=== PATIENT | female | born 1970 | race Caucasian/White ===

== ENCOUNTER 2021-04-20 16:53 | Emergency (ER) | payer OTHER, MEDICAID ==
[~2021-04-20] VITALS: Ht 154.9 cm; Wt 111.1 kg
== END 2021-04-20 18:38 | disposition left against medical advice (07) ==
LOC: ED 16:53
DX: L08.9 Local infection of the skin and subcutaneous tissue, unspecified (principal); Z53.21 Procedure and treatment not carried out due to patient leaving prior to being seen by health care provider; Z88.8 Allergy status to other drugs, medicaments and biological substances

== ENCOUNTER → 2021-06-29 | Outpatient (CLI) | payer OTHER, MEDICAID ==
[2021-06-30 18:06] LABS: AMPHETAMINE, URINE Negative ng/mL (Cutoff=1000); BARBITURATE Negative ng/mL (Cutoff=200); CANNABINOIDS Negative ng/mL (Cutoff=20); COCAINE (METABOLITE) Negative ng/mL (Cutoff=300); FENTANYL, URINE Negative pg/mL (Cutoff=2000); MEPERIDINE Negative ng/mL (Cutoff=200); METHADONE Negative ng/mL (Cutoff=300); PHENCYCLIDINE Negative ng/mL (Cutoff=25); PROPOXYPHENE Negative ng/mL (Cutoff=300); TRAMADOL Negative ng/mL (Cutoff=200)
== END | disposition home or self-care (01) ==
LOC: LAB 09:45
PROVIDERS: ATTEND Nurse Practitioner Family
DX: Z51.81 Encounter for therapeutic drug level monitoring (principal); Z79.899 Other long term (current) drug therapy

== ENCOUNTER 2023-03-08 09:54 | Emergency (ER) | payer OTHER, MEDICAID ==
[~2023-03-08] VITALS: Ht 154.9 cm; Wt 99.8 kg
[2023-03-08] MEDS ORDERED: CYCLOBENZAPRINE10 MG PO (10:10)
[2023-03-08] MEDS ORDERED: GABAPENTIN600 MG PO (10:10)
[2023-03-08] MEDS ORDERED: HYDROCODONE-AC1 EACH PO (10:11)
[2023-03-08] MEDS ORDERED: ARIPIPRAZOLE2 MG PO (10:11)
[2023-03-08] MEDS ORDERED: BUSPAR15 MG PO (10:12)
[2023-03-08] MEDS ORDERED: CARVEDILOL12.5 MG PO (10:12)
[2023-03-08] MEDS ORDERED: HYDROXYZINE PAM25 M1 PO (10:13)
[2023-03-08] MEDS ORDERED: FAMOTIDINE40 MG PO (10:13)
[2023-03-08] MEDS ORDERED: HYDROCHLOROTHIA25 M1 PO (10:13)
[2023-03-08] MEDS ORDERED: VENT7GM INH (10:14)
[2023-03-08] MEDS ORDERED: ESCITALOPRAM OX20 MG PO (10:15)
== END 2023-03-08 12:27 | disposition home or self-care (01) ==
LOC: ED 09:54
DX: M54.2 Cervicalgia (principal); M54.6 Pain in thoracic spine; Z88.8 Allergy status to other drugs, medicaments and biological substances; Z79.899 Other long term (current) drug therapy; V43.63XA Car passenger injured in collision with pick-up truck in traffic accident, initial encounter; Y93.89 Activity, other specified; Y92.89 Other specified places as the place of occurrence of the external cause; Y99.8 Other external cause status

== ENCOUNTER 2024-03-09 16:09 | Inpatient (IN) | payer MEDICARE, MEDICAID ==
[~2024-03-09] VITALS: Ht 154.9 cm; Wt 102.1 kg
[~2024-03-09 16:09] MED LIST: ARIPIPRAZOLE2 MG PO; BUSPAR15 MG PO; CARVEDILOL12.5 MG PO; CYCLOBENZAPRINE10 MG PO; ESCITALOPRAM OX20 MG PO; FAMOTIDINE40 MG PO; GABAPENTIN600 MG PO; HYDROCHLOROTHIA25 M1 PO; HYDROCODONE-AC1 EACH PO; HYDROXYZINE PAM25 M1 PO; VENT7GM INH
[2024-03-09 16:21] VITALS: BP 93/48
[2024-03-09 16:28] LABS: ABG BASE EXCESS -2.3 mmol/L (-2.0-2.0); ARTERIAL BLOOD GAS PH 7.378 (7.35-7.45)
[2024-03-09 16:35] LABS: HEMATOCRIT 36.5 % (37.0-47.0); MANUAL DIFF REFLEX YES; MEAN CELL VOLUME 86.9 fl (81.0-99.0); MEAN CORPUSCULAR HGB 26.9 pg (27.0-31.0); MEAN PLATELET VOLUME 9.1 fl (9.6-12.3); NUCLEATED RED BLOOD CELL 0.1 % (0.0-0.0); PLATELET COUNT AUTOMATED 378 10*3/uL (130-400); RED CELL DISTRI WIDTH 15.6 % (0-14.5); WHITE BLOOD COUNT 29.1 10*3/uL (4.8-10.8)
[2024-03-09] MEDS ORDERED: SODIUM CHLORIDE 0.9% 1,000 ML IV SCH (16:40)
[2024-03-09] MEDS ORDERED: methylPREDNISolone sod succ 125 MG VIAL IV ONE (16:40)
[2024-03-09 16:46] LABS: ACT PARTIAL THROMBO TIME 28.8 SECONDS (20.0-32.1)
[2024-03-09 16:55] LABS: PLATELET SUFFICIENCY NORMAL (NORMAL); TOTAL CELLS COUNTED 100 #CELLS
[2024-03-09] MEDS ORDERED: Vancomycin Hydrochloride 250 ML IV ONE (16:55)
[2024-03-09] MEDS ORDERED: Piperacillin Sodium/Tazobact 50 ML IV ONE (16:55)
[2024-03-09 16:56] LABS: BURR CELLS FEW; POLYCHROMASIA SLIGHT; ROULEAUX SLIGHT
[2024-03-09 17:04] LABS: ALKALINE PHOSPHATASE 97 U/L (46-116); BUN 11 mg/dl (9-23); CHLORIDE 97 mmol/L (98-107); LIPASE 36 U/L (12-53); POTASSIUM 3.7 mmol/L (3.4-5.1); SGPT/ALT 19 U/L (5-49); TOTAL PROTEIN 6.6 gm/dL (6.0-8.0)
[2024-03-09] MEDS ORDERED: LACTULOSE 20 GM/30 ML UDC PO ONE (17:10)
[2024-03-09] MEDS ORDERED: BISACODYL 5 MG TAB PO PRN (17:55)
[2024-03-09] MEDS ORDERED: Ondansetron Hydrochloride 4 MG/2 ML VIAL IV PRN (17:55)
[2024-03-09] MEDS ORDERED: BISACODYL 10 MG SUPP R PRN (17:55)
[2024-03-09] MEDS ORDERED: Magnesium Hydroxide 30 ML UDC PO PRN (17:55)
[2024-03-09] MEDS ORDERED: ACETAMINOPHEN 325 MG TAB PO PRN (17:55)
[2024-03-09] MEDS ORDERED: EPINEPHrine Hydrochloride 1 MG,IV 1 EA in SODIUM CHLORIDE 0.9% 250 ML IV SCH (18:00)
[2024-03-09] MEDS ORDERED: NOREPINEPHRINE BITARTRATE/D5W 250 ML IV SCH (18:10)
[2024-03-09] MEDS ORDERED: Ceftriaxone Sodium 1 GM in SYRINGE INFUSION 10 ML IV SCH (18:30)
[2024-03-09 18:49] VITALS: BP 99/66
[2024-03-09] MEDS ORDERED: TRELEGY ELLIPT1 EACH INH (18:56)
[2024-03-09 19:13] VITALS: BP 97/60
[2024-03-09] MEDS ORDERED: Albuterol Sulf/Ipratropium 3 ML VIAL NEB SCH (19:25)
[2024-03-09] MEDS ORDERED: DEXTROSE 10 % IN WATER 250 ML IV PRN (19:55)
[2024-03-09] MEDS ORDERED: AZITHROMYCIN 250 ML IV SCH (20:00)
[2024-03-09 20:30] VITALS: BP 104/64
[2024-03-09 20:44] VITALS: BP 105/66
[2024-03-09 21:05] LABS: ABG BASE EXCESS 0.6 mmol/L (-2.0-2.0); ARTERIAL BLOOD GAS PH 7.394 (7.35-7.45)
[2024-03-09] MEDS ORDERED: hydrOXYzine pamoate 25 MG CAP PO PRN (21:10)
[2024-03-09] MEDS ORDERED: ABILIFY5 MG PO (21:13)
[2024-03-09] MEDS ORDERED: FLUOXETINE HYDR20 M1 PO (21:19)
[2024-03-09] MEDS ORDERED: methylPREDNISolone sod succ 40 MG VIAL IV SCH (22:00)
[2024-03-09] MEDS ORDERED: INSULIN LISPRO 1 UNIT/0.01 ML SQ SCH (22:00)
[2024-03-09] MEDS ORDERED: CARVEDILOL 12.5 MG TAB PO SCH (22:00)
[2024-03-09] MEDS ORDERED: GABAPENTIN 600 MG TAB PO SCH (22:00)
[2024-03-09] MEDS ORDERED: ARIPiprazole 5 MG TAB PO SCH (22:00)
[2024-03-09] MEDS ORDERED: Nicotine 21 MG PATCH T SCH (22:50)
[2024-03-10] VITALS: BP 102/66
[2024-03-10 04:00] VITALS: BP 110/44
[2024-03-10 06:00] LABS: BASO # 0.1 10*3/uL (0.0-0.1); BASO % 0.2 % (0.0-1.0); EOS % 0.1 % (1.0-4.0); HEMATOCRIT 33.5 % (37.0-47.0); LYMPH # 2.5 10*3/uL (1.3-4.4); MEAN CELL VOLUME 88.6 fl (81.0-99.0); MEAN CORPUSCULAR HGB CONC 30.4 g/dl (33.0-37.0); MEAN PLATELET VOLUME 9.8 fl (9.6-12.3); MONO # 0.4 10*3/uL (0.1-1.0); MONO % 1.7 % (3.0-9.0); NEUT # 19.4 10*3/uL (2.3-7.9); NUCLEATED RED BLOOD CELL 0.1 10*3/uL (0.0-0.0); NUCLEATED RED BLOOD CELL 0.3 % (0.0-0.0); PLATELET COUNT AUTOMATED 321 10*3/uL (130-400); RED BLOOD COUNT 3.78 10*6/uL (4.10-5.10); RED CELL DISTRI WIDTH 15.5 % (0-14.5); WHITE BLOOD COUNT 22.6 10*3/uL (4.8-10.8)
[2024-03-10 06:38] LABS: ALKALINE PHOSPHATASE 91 U/L (46-116); BUN 13 mg/dl (9-23); CHLORIDE 98 mmol/L (98-107); CHOLESTEROL 162 mg/dL (<200); LDL CHOLESTEROL 111 mg/dL (9-159); POTASSIUM 3.7 mmol/L (3.4-5.1); SGPT/ALT 19 U/L (5-49); TOTAL PROTEIN 6.6 gm/dL (6.0-8.0); TRIGLYCERIDES 105 mg/dl (<150)
[2024-03-10 06:41] LABS: VITAMIN D, 25-HYDROXY 28.8 ng/mL (30-100)
[2024-03-10 07:42] LABS: ARTERIAL BLOOD GAS PH 7.39 (7.35-7.45)
[2024-03-10] MEDS ORDERED: Acetaminophen/Hydrocodone HP 10/325 PO PRN (07:55)
[2024-03-10 08:00] VITALS: BP 115/63
[2024-03-10] MEDS ORDERED: Enoxaparin Sodium 40 MG/0.4 ML SYR SC SCH (10:00)
[2024-03-10] MEDS ORDERED: Nicotine 21 MG PATCH T SCH (10:00)
[2024-03-10] MEDS ORDERED: HYDROCHLOROTHIAZIDE 25 MG TAB PO SCH (10:00)
[2024-03-10] MEDS ORDERED: busPIRone Hydrochloride 15 MG TAB PO SCH (10:00)
[2024-03-10] MEDS ORDERED: Cholecalciferol 5,000 IU CAP (125 MCG) PO SCH (10:00)
[2024-03-10] MEDS ORDERED: Fluoxetine Hydrochloride 20 MG CAP PO SCH (10:00)
[2024-03-10 12:00] VITALS: BP 125/75
[2024-03-10 13:29] LABS: BILIRUBIN Negative (Negative); BLOOD Negative (Negative); CLARITY Clear (Clear); COLOR Yellow (Yellow); GLUCOSE Negative (Negative); KETONE Negative (Negative); LEUKO ESTERASE Negative (Negative); NITRITE Negative (Negative); PH 6.5 (4.5-8.0); UROBILINOGEN 0.2 E.U./dl (0.0-1.0)
[2024-03-10 13:38] LABS: URINE AMPHETAMINES Negative (1000ng/ml); URINE BARBITURATES Negative (200ng/ml); URINE BENZODIAZEPINES Negative (200ng/ml); URINE CANNABINOIDS (THC) Negative (50ng/ml); URINE COCAINE Negative (300ng/ml); URINE METHADONE Negative (300ng/ml); URINE OPIATES Positive (300ng/ml); URINE PHENCYCLIDINE Negative (25ng/ml)
[2024-03-10 13:48] LABS: BACTERIA TRACE; MUCOUS 1+; YEAST 1+
[2024-03-10 16:00] VITALS: BP 99/41
[2024-03-10 20:00] VITALS: BP 122/70
[2024-03-11] VITALS: BP 102/62
[2024-03-11] MEDS ORDERED: GABAPENTIN 600 MG TAB PO SCH (06:00)
[2024-03-11 06:31] LABS: HEMATOCRIT 31.5 % (37.0-47.0); MEAN CELL VOLUME 86.8 fl (81.0-99.0); MEAN CORPUSCULAR HGB 26.7 pg (27.0-31.0); MEAN CORPUSCULAR HGB CONC 30.8 g/dl (33.0-37.0); MEAN PLATELET VOLUME 9.9 fl (9.6-12.3); NUCLEATED RED BLOOD CELL 0.1 10*3/uL (0.0-0.0); NUCLEATED RED BLOOD CELL 0.2 % (0.0-0.0); PLATELET COUNT AUTOMATED 313 10*3/uL (130-400); RED BLOOD COUNT 3.63 10*6/uL (4.10-5.10); RED CELL DISTRI WIDTH 15.4 % (0-14.5); WHITE BLOOD COUNT 28.9 10*3/uL (4.8-10.8)
[2024-03-11 06:34] LABS: MANUAL DIFF REFLEX YES
[2024-03-11 06:53] LABS: ALKALINE PHOSPHATASE 90 U/L (46-116); BUN 15 mg/dl (9-23); CHLORIDE 96 mmol/L (98-107); FREE T4 0.97 ng/dl (0.89-1.76); POTASSIUM 3.6 mmol/L (3.4-5.1); SGPT/ALT 15 U/L (5-49); TOTAL PROTEIN 6.3 gm/dL (6.0-8.0)
[2024-03-11 07:12] LABS: BURR CELLS FEW; PLATELET SUFFICIENCY NORMAL (NORMAL); POLYCHROMASIA SLIGHT; ROULEAUX SLIGHT; TOTAL CELLS COUNTED 100 #CELLS; TOXIC GRANULATION SLIGHT; VACUOLATION OF NEUTROPHILS SLIGHT
[2024-03-11 08:00] VITALS: BP 112/72
[2024-03-11] MEDS ORDERED: busPIRone Hydrochloride 15 MG TAB PO SCH (10:00)
[2024-03-11 12:00] VITALS: BP 130/78
[2024-03-11] MEDS ORDERED: FUROSEMIDE 40 MG/4 ML VIAL IV ONE (12:45)
[2024-03-11] MEDS ORDERED: Cefepime Hydrochloride 2 GM,IV 1 EA in SODIUM CHLORIDE 0.9% 50 ML IV SCH (14:00)
[2024-03-11 16:00] VITALS: BP 108/73
[2024-03-11 20:00] VITALS: BP 126/72
[2024-03-12] VITALS: BP 104/65
[2024-03-12 06:28] LABS: BASO % 0.2 % (0.0-1.0); HEMATOCRIT 30.2 % (37.0-47.0); LYMPH # 3.4 10*3/uL (1.3-4.4); MEAN CELL VOLUME 86.3 fl (81.0-99.0); MEAN CORPUSCULAR HGB 27.1 pg (27.0-31.0); MEAN CORPUSCULAR HGB CONC 31.5 g/dl (33.0-37.0); MEAN PLATELET VOLUME 9.5 fl (9.6-12.3); MONO % 4.6 % (3.0-9.0); NEUT # 17.8 10*3/uL (2.3-7.9); NEUT % 79.2 % (47.0-73.0); NUCLEATED RED BLOOD CELL 0.1 % (0.0-0.0); PLATELET COUNT AUTOMATED 323 10*3/uL (130-400); RED CELL DISTRI WIDTH 15.8 % (0-14.5); WHITE BLOOD COUNT 22.4 10*3/uL (4.8-10.8)
[2024-03-12 06:37] LABS: BUN 23 mg/dl (9-23); CHLORIDE 95 mmol/L (98-107); POTASSIUM 3.7 mmol/L (3.4-5.1)
[2024-03-12 08:00] VITALS: BP 141/66
[2024-03-12] MEDS ORDERED: methylPREDNISolone sod succ 40 MG VIAL IV SCH (10:00)
[2024-03-12 12:00] VITALS: BP 138/88
[2024-03-12] MEDS ORDERED: FUROSEMIDE 40 MG/4 ML VIAL IV SCH (12:00)
[2024-03-12 14:08] LABS: IMMUNOGLOBULIN M, QNT 134 mg/dL (26-217); MYCOPLASMA PNEUMONIAE IGG 437 U/mL (0-99); MYCOPLASMA PNEUMONIAE IGM <770 U/mL (0-769)
[2024-03-12 15:07] LABS: ALDOLASE 10.2 U/L (3.3-10.3); ANGIOTENSIN-CONVERTING ENZYME 56 U/L (14-82); IGG SUBCLASS 1 402 mg/dL (248-810); IGG SUBCLASS 2 163 mg/dL (130-555); IGG SUBCLASS 3 15 mg/dL (15-102); IMMUNOGLOBULIN G, QNT 716 mg/dL (586-1602)
[2024-03-12 16:00] VITALS: BP 123/64
[2024-03-12 20:00] VITALS: BP 118/77
[2024-03-13] VITALS: BP 120/66
[2024-03-13 06:36] LABS: HEMATOCRIT 32.8 % (37.0-47.0); MEAN CELL VOLUME 86.5 fl (81.0-99.0); MEAN CORPUSCULAR HGB 27.4 pg (27.0-31.0); MEAN CORPUSCULAR HGB CONC 31.7 g/dl (33.0-37.0); MEAN PLATELET VOLUME 9.5 fl (9.6-12.3); NUCLEATED RED BLOOD CELL 0.1 % (0.0-0.0); PLATELET COUNT AUTOMATED 346 10*3/uL (130-400); RED BLOOD COUNT 3.79 10*6/uL (4.10-5.10); RED CELL DISTRI WIDTH 15.7 % (0-14.5); WHITE BLOOD COUNT 18.7 10*3/uL (4.8-10.8)
[2024-03-13 06:42] LABS: MANUAL DIFF REFLEX YES
[2024-03-13 06:58] LABS: BUN 22 mg/dl (9-23); CHLORIDE 96 mmol/L (98-107); POTASSIUM 3.6 mmol/L (3.4-5.1)
[2024-03-13 07:45] LABS: PLATELET SUFFICIENCY NORMAL (NORMAL); TOTAL CELLS COUNTED 100 #CELLS
[2024-03-13 08:00] VITALS: BP 110/90
[2024-03-13 12:00] VITALS: BP 109/77
[2024-03-13 16:00] VITALS: BP 120/75
[2024-03-13 20:00] VITALS: BP 123/58
[2024-03-14] VITALS: BP 112/55
[2024-03-14 08:00] VITALS: BP 122/81
[2024-03-14 09:16] LABS: HEMATOCRIT 36.4 % (37.0-47.0); MEAN CORPUSCULAR HGB 27.3 pg (27.0-31.0); MEAN CORPUSCULAR HGB CONC 32.1 g/dl (33.0-37.0); MEAN PLATELET VOLUME 9.2 fl (9.6-12.3); PLATELET COUNT AUTOMATED 423 10*3/uL (130-400); RED BLOOD COUNT 4.28 10*6/uL (4.10-5.10); RED CELL DISTRI WIDTH 15.9 % (0-14.5)
[2024-03-14 09:30] LABS: MANUAL DIFF REFLEX YES
[2024-03-14 09:37] LABS: BUN 18 mg/dl (9-23); CHLORIDE 92 mmol/L (98-107); POTASSIUM 3.6 mmol/L (3.4-5.1)
[2024-03-14 09:43] LABS: ATYPICAL LYMPHS 2 % (0-0); TOTAL CELLS COUNTED 100 #CELLS
[2024-03-14 09:44] LABS: PLATELET SUFFICIENCY HIGH (NORMAL)
[2024-03-14] MEDS ORDERED: PREDNISONE10 MG PO (11:45)
[2024-03-14] MEDS ORDERED: VITAMIN D3125 MC1 PO (11:45)
[2024-03-14] MEDS ORDERED: ZITHROMAX250 MG PO (11:45)
[2024-03-14 12:00] VITALS: BP 115/77
== END 2024-03-14 13:26 | disposition home or self-care (01) | DRG 871 ==
LOC: ED 16:09 → ICCU 17:44 → EDHOLD 17:44 → ICCU 19:28 → 4E 03-10 17:43
PROVIDERS: Internal Medicine; Internal Medicine Critical Care Medicine; Student in an Organized Health Care Education/Training Program; Surgery Surgical Critical Care; ADMIT Internal Medicine; ATTEND Internal Medicine
PROC: 5A09357 Assistance with Respiratory Ventilation, Less than 24 Consecutive Hours, Continuous Positive Airway Pressure (ICD-10-PCS; principal; 2024-03-09)
PROC: 02H633Z Insertion of Infusion Device into Right Atrium, Percutaneous Approach (ICD-10-PCS; 2024-03-09)
PROC: B548ZZA Ultrasonography of Superior Vena Cava, Guidance (ICD-10-PCS; 2024-03-09)
PROC: 5A09357 Assistance with Respiratory Ventilation, Less than 24 Consecutive Hours, Continuous Positive Airway Pressure (ICD-10-PCS; 2024-03-10)
PROC: 5A0935A Assistance with Respiratory Ventilation, Less than 24 Consecutive Hours, High Flow/Velocity Cannula (ICD-10-PCS; 2024-03-10)
PROC: 5A09357 Assistance with Respiratory Ventilation, Less than 24 Consecutive Hours, Continuous Positive Airway Pressure (ICD-10-PCS; 2024-03-11)
PROC: 5A0935A Assistance with Respiratory Ventilation, Less than 24 Consecutive Hours, High Flow/Velocity Cannula (ICD-10-PCS; 2024-03-11)
PROC: 5A0935A Assistance with Respiratory Ventilation, Less than 24 Consecutive Hours, High Flow/Velocity Cannula (ICD-10-PCS; 2024-03-12)
PROC: 5A0935A Assistance with Respiratory Ventilation, Less than 24 Consecutive Hours, High Flow/Velocity Cannula (ICD-10-PCS; 2024-03-13)
DX: A41.9 Sepsis, unspecified organism (principal); G93.41 Metabolic encephalopathy; J18.9 Pneumonia, unspecified organism; J96.01 Acute respiratory failure with hypoxia; R65.21 Severe sepsis with septic shock; J81.0 Acute pulmonary edema; I21.4 Non-ST elevation (NSTEMI) myocardial infarction; E87.1 Hypo-osmolality and hyponatremia; J44.0 Chronic obstructive pulmonary disease with (acute) lower respiratory infection; J90 Pleural effusion, not elsewhere classified; E72.20 Disorder of urea cycle metabolism, unspecified; Z68.41 Body mass index [BMI] 40.0-44.9, adult; K76.82 Hepatic encephalopathy; K21.9 Gastro-esophageal reflux disease without esophagitis; I50.9 Heart failure, unspecified; R74.01 Elevation of levels of liver transaminase levels; F17.210 Nicotine dependence, cigarettes, uncomplicated; F32.A Depression, unspecified; D64.9 Anemia, unspecified; E11.49 Type 2 diabetes mellitus with other diabetic neurological complication; F32.9 Major depressive disorder, single episode, unspecified; G89.4 Chronic pain syndrome; E87.8 Other disorders of electrolyte and fluid balance, not elsewhere classified; I11.0 Hypertensive heart disease with heart failure; G47.33 Obstructive sleep apnea (adult) (pediatric); I95.89 Other hypotension; E11.65 Type 2 diabetes mellitus with hyperglycemia; E11.42 Type 2 diabetes mellitus with diabetic polyneuropathy; E66.9 Obesity, unspecified; Z91.199 Patient's noncompliance with other medical treatment and regimen due to unspecified reason; Z90.710 Acquired absence of both cervix and uterus; Z90.49 Acquired absence of other specified parts of digestive tract; Z88.8 Allergy status to other drugs, medicaments and biological substances; Z71.6 Tobacco abuse counseling